=== PATIENT | male | born 1985 | race Caucasian/White ===

== ENCOUNTER 2016-10-25 03:26 | Emergency (ER) | payer OTHER ==
[2016-10-25 03:30] VITALS: RESP 16
[2016-10-25] MEDS ORDERED: PROPARACAINE 0.5% 15 ML OPHT DROP ONE (04:31)
[2016-10-25] MEDS ORDERED: FLUORESCEIN SODIUM 1 MG STRIP OP ONE ×2 (04:31→04:40)
--- NOTE | 2016-10-25 04:33 | EDPHY ---
H & P Stated Complaint: chemical in right eye Time Seen by Provider: 10/25/16 03:59 HPI/ROS: HPI The patient presents after chemical exposure to right eye while at work just prior to arrival. He was working with a mixture that contained approximately 1 % of anesthetic solution which splashed into his eye. He developed pain which was burning in nature. He irrigated the eye immediately at work. He has had no changes to his vision, no tearing, no photophobia. REVIEW OF SYSTEMS Constitutional: No fever, no chills. Eyes: No discharge. ENT: No sore throat. Cardiovascular: No chest pain, no palpitations. Respiratory: No cough, no shortness of breath. Gastrointestinal: No abdominal pain, no vomiting. Genitourinary: No hematuria. Musculoskeletal: No back pain. Skin: No rashes. Neurological: No headache. PMHx: Healthy PHYSICAL General Appearance: Alert, no distress EYE EXAM Visual Acuity: noted from Nurse's notes. Pupils: equal round and reactive to light EOMI Skin: no proptosis, no periorbital erythema or swelling, no vesicles Conjunctivae: not injected, no discharge Cornea: exam with fluoroscein shows no uptake Anterior chamber:normal, no hyphema or hypopyon ENT, Mouth: Mucous membranes moist Respiratory: Breathing comfortably Skin: Warm and dry, no rashes Musculoskeletal: Neck is supple non tender Extremities: symmetrical, full range of motion Psychiatric: Patient is oriented X 3, there is no agitation Source: Patient Exam Limitations: No limitations - Personal History Current Tetanus/Diphtheria Vaccine: Yes Current Tetanus Diphtheria and Acellular Pertussis (TDAP): Yes - Medical/Surgical History Hx Asthma: No Hx Chronic Respiratory Disease: No Hx Diabetes: No Hx Cardiac Disease: No Hx Renal Disease: No Hx Cirrhosis: No Hx Alcoholism: No Hx HIV/AIDS: No Hx Splenectomy or Spleen Trauma: No Other PMH: appendectomy, Lasik - Social History Smoking Status: Former smoker Constitutional: Initial Vital Signs Temperature (C) 36.8 C 10/25/16 03:28 Heart Rate 50 L 10/25/16 03:28 Respiratory Rate 16 10/25/16 03:28 Blood Pressure 143/62 H 10/25/16 03:28 O2 Sat (%) 98 10/25/16 03:28 O2 Delivery Mode Room Air Allergies/Adverse Reactions: No Known Allergies Allergy (Unverified 10/25/16 03:31) Home Medications: Medication Instructions Recorded NK [No Known Home Meds] 10/25/16 Medical Decision Making Differential Diagnosis: This is a 31-year-old male who is healthy who presents with chemical exposure to his right eye just prior to arrival while at work. He initially had pain, however irrigated the eye at work. Here we have irrigated his eye with a L of normal saline. He is feeling well now. He has a normal visual acuity. His eye exam is normal. Differential diagnosis includes corneal abrasion, corneal ulceration, chemical burn to RI. - Data Points Medications Given: Discontinued Medications Fluorescein Sodium (Pyzkj-T-Pajeo) 1 mg OP EDNOW ONE Stop: 10/25/16 04:41 Last Admin: 10/25/16 04:35 Dose: 1 mg Proparacaine HCl (Alcaine 0.5%) 1 drops RTEYE ONCE ONE Stop: 10/25/16 04:41 Last Admin: 10/25/16 04:44 Dose: 1 drop Departure - Departure Disposition: Home, Routine, Self-Care Clinical Impression: Chemical insult, eye Condition: Good Instructions: Chemical Eye Roman (ED) Additional Instructions: Please return to the emergency room if your worse in any way. Otherwise, you can follow up with the real estate listing consultant, Dr. Archer as needed. Referrals: Israel Archer [Medical Doctor] - As per Instructions
[2016-10-25] MEDS ORDERED: PROPARACAINE 0.5% 15 ML OPHT DROP RTEYE ONE (04:40)
[2016-10-25 04:45] VITALS: BP 134/63; PULSE 60; TEMP 98.1; O2SAT 96
== END 2016-10-25 04:45 | disposition home or self-care (01) ==
DX: Z77.098 Contact with and (suspected) exposure to other hazardous, chiefly nonmedicinal, chemicals (principal); Z87.891 Personal history of nicotine dependence